=== PATIENT | female | born 1955 | race Caucasian/White ===

== ENCOUNTER → 2020-01-23 | Outpatient (CLI) | payer MEDICARE ==
--- NOTE | 2020-01-23 15:33 | KCIC ---
Examination: MRI of the left knee without contrast HISTORY: History of medial left knee pain lifting injury COMPARISON: None available Technique: Multiplanar, multisequence MR imaging of the left knee were performed without contrast. FINDINGS: The anterior cruciate ligament, posterior cruciate ligament appears intact. The medial meniscus is intact. The medial meniscus, appears intact. There is mild blunting of the body of the lateral meniscus. Moderate degenerative changes identified. The medial collateral ligament appears intact. Lateral collateral ligamentous complex including the fibular collateral ligament, biceps femoris tendon, popliteus tendon appear intact. Moderate knee joint effusion is identified. There is deep fissuring of cartilage identified in the patellofemoral compartment. There is mild superficial fraying of cartilage identified in the medial, lateral compartment. The extensor mechanism is intact. Small subchondral cystic changes identified at the lateral patellofemoral compartment. The medial, lateral retinaculum appears intact. Moderate osteophyte formation identified in the medial, lateral, patellofemoral compartments. IMPRESSION: 1. Mild blunting of the body of the lateral meniscus could be a small radial tear. 2. 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 3. Small knee joint effusion. Electronically signed by: Shant Fink MD (01/23/2020 3:30 PM) [id number]
== END | disposition home or self-care (01) ==
LOC: KCIC MRI 14:27
PROVIDERS: ATTEND Orthopaedic Surgery
DX: M17.12 Unilateral primary osteoarthritis, left knee (principal); M22.42 Chondromalacia patellae, left knee; M25.462 Effusion, left knee; M25.862 Other specified joint disorders, left knee; M25.78 Osteophyte, vertebrae
CPT/HCPCS: 73721

== ENCOUNTER → 2020-04-17 | Outpatient (CLI) | payer MEDICARE ==
[~2020-04-17] MED LIST: ACET1TAB37 PO; ATOR40TA59 PO; CETI10TA16 PO; CHOL500050 PO; MEMA10TA PO; THIA100T43 PO; THIA100T57 PO
== END ==
LOC: LAB 12:55
PROVIDERS: ATTEND Orthopaedic Surgery
DX: Z01.812 Encounter for preprocedural laboratory examination (principal); Z20.828 Contact with and (suspected) exposure to other viral communicable diseases
CPT/HCPCS: U0003

== ENCOUNTER 2020-04-21 07:58 | Day surgery (SDC) | payer MEDICARE ==
[~2020-04-21] VITALS: Ht 157.5 cm; Wt 80.3 kg
[~2020-04-21 07:58] MED LIST changes: -ACET1TAB37 PO; -ATOR40TA59 PO; +BUPIVACAINE-EPI 0.5%-1:200000 MPF 30 ML VIAL. INJ PRN; -CETI10TA16 PO; -CHOL500050 PO; +HYDROmorphone 2 MG/ML VIAL IV PRN; +LIDOCAINE 1% PF 2 ML VIAL. ID PRN; -MEMA10TA PO; +MORPHINE SULFATE 2 MG/ML VIAL. IV PRN; +ONDANSETRON PF 4 MG/2 ML VIAL. IV PRN; +PROCHLORPERAZINE 10 MG/2 ML VIAL. IV PRN; -THIA100T43 PO; -THIA100T57 PO; +fentaNYL PF VIAL 100 MCG/2 ML VIAL IV PRN
[2020-04-21] MEDS ORDERED: MEMA10TA PO (08:35)
[2020-04-21] MEDS ORDERED: ATOR40TA59 PO (08:35)
[2020-04-21] MEDS ORDERED: CETI10TA16 PO (08:36)
[2020-04-21] MEDS ORDERED: CHOL500050 PO (08:37)
[2020-04-21] MEDS ORDERED: THIA100T57 PO (08:38)
[2020-04-21] MEDS ORDERED: THIA100T43 PO (08:39)
[2020-04-21] MEDS: IV RINGERS,LACTATED 1000ML 1,000 ML IV SCH ×2 (08:45→10:29)
[2020-04-21] MEDS ORDERED: MIDAZOLAM HCL/PF 2 MG/2 ML VIAL. ONE (09:22)
[2020-04-21] MEDS ORDERED: fentaNYL PF VIAL 100 MCG/2 ML VIAL ONE (09:22)
[2020-04-21] MEDS ORDERED: ACET1TAB37 PO (09:33)
--- NOTE | 2020-04-21 09:35 | DISCH ---
DISCHARGE INSTRUCTIONS Condition on Discharge Condition on Discharge: Stable Activity After Discharge Activity Instructions for Disc: Progressive ambulation Weight Bearing Status after Di: As tolerated Diet after Discharge Diet after Discharge: Regular Wound Incision Care Wound/Incision Care: Change dressing (remove dressing in 2 days may then shower) Contacting the after DC Call your doctor for: Concerns you may have Follow-Up Follow up with: Dr. Rankin 7-10 days ALLY RANKIN MD Apr 21, 2020 09:35
[2020-04-21] MEDS ORDERED: PROPOFOL 10 MG/ML (20ML) VIAL. IV ONE (10:06)
[2020-04-21] MEDS ORDERED: ONDANSETRON PF 4 MG/2 ML VIAL. ONE (10:06)
[2020-04-21] MEDS ORDERED: DEXAMETHASONE SOD PHOS 20 MG/5 ML VIAL. ONE (10:06)
[2020-04-21] MEDS ORDERED: SEVOFLURANE 61 TO 120 MINUTES. IH ONE (10:06)
[2020-04-21] MEDS ORDERED: LIDOCAINE 2% PF 5 ML VIAL. ONE (10:06)
--- NOTE | 2020-04-21 10:23 | PDOC4 ---
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 I had gone over with her the risks benefits postoperative course of the potential operative treatment and noted that while surgery would address the mechanical issues of the meniscus tear as well as possible I cannot undo any degenerative changes or the symptoms associated with those and if she has ongoing symptoms from degenerative change in the knee those would have to be treated symptomatically going forward. It does appear that her symptoms are mainly mechanical from what she described and what we were able to diagnosed on her examination. She understands the possibility of this as well as possibility of infection nerve or blood vessel damage medical or other anesthetic complications among others and agrees to proceed with surgical evaluation and treatment. Operative text: Patient was identified procedure verified patient placed in the supine position on the operating table. After adequate amounts of general anesthesia were administered the left lower extremity was prepped and draped in standard sterile fashion with a thigh tourniquet. After timeout was performed patient procedure identified and verified the left lower extremity was exsanguinated by Esmarch bandage tourniquet inflated to 300 mmHg lateral portal established medial portal established using spinal needle localization and the knee joint was systematically examined. She was noted to have good patellofemoral tracking grade III chondromalacia in the trochlear groove and distal pole the patella both of which were debrided lightly with the arthroscopic shaver to remove any loose pieces of cartilage. A few small loose cartilage pieces noted in the gutters and suprapatellar pouch were evacuated with the arthroscopic shaver. She was found to have a displaceable tear of the posterior horn body of the medial meniscus which was trimmed back to stable tissue with the arthroscopic punch and shaver. She likewise had free edge tearing of the lateral meniscus which again was trimmed back to stable tissue with the arthroscopic punch and shaver. ACL was noted to be intact. She also h ad grade III chondromalacia of the medial femoral condyle which was gently smoothed back to more stable cartilage without removing any intact cartilage and likewise grade III chondromalacia of the lateral tibial plateau which required light debridement of a chondral flap tear. The knee was then drained of arthroscopic fluid fat pad and portal areas were injected with half percent Marcaine plain portals were closed with nylon suture sterile soft dressings were applied toes were noted to be warm pink following deflation of tourniquet patient returned to recovery room in stable condition having tolerated the procedure well ALLY ORDOÑEZ MD Apr 21, 2020 10:23
[2020-04-21] MEDS ORDERED: ACETAMINOPHEN/CODEINE 300/30MG TABLET. PO ONE (11:00)
[2020-04-21] MEDS ORDERED: ACETAMINOPHEN 500 MG TABLET PO ONE (11:15)
[2020-04-21] MEDS ORDERED: traMADol 50 MG TABLET PO ONE (11:15)
[2020-04-21] MEDS ORDERED: ACETAMINOPHEN 325 MG TABLET. PO ONE ×2 (11:20→11:30)
[2020-04-21 11:36] VITALS: BP 141/75
== END 2020-04-21 12:32 | disposition home or self-care (01) ==
LOC: SURG 07:58
PROVIDERS: ATTEND Orthopaedic Surgery
DX: S83.242A Other tear of medial meniscus, current injury, left knee, initial encounter (principal); S83.282A Other tear of lateral meniscus, current injury, left knee, initial encounter; E78.00 Pure hypercholesterolemia, unspecified; F41.9 Anxiety disorder, unspecified; Z90.710 Acquired absence of both cervix and uterus; Z98.890 Other specified postprocedural states; Z79.899 Other long term (current) drug therapy; Z87.891 Personal history of nicotine dependence; Z72.89 Other problems related to lifestyle; Z91.040 Latex allergy status; Z88.1 Allergy status to other antibiotic agents; Z88.8 Allergy status to other drugs, medicaments and biological substances; X58.XXXA Exposure to other specified factors, initial encounter; Y93.89 Activity, other specified; Y92.89 Other specified places as the place of occurrence of the external cause; Y99.8 Other external cause status
CPT/HCPCS: 29880; J0690; J1100; J2405; J2704; J2250; J3010